=== PATIENT | female | born 1980 | race Caucasian/White ===

== ENCOUNTER → 2018-07-20 | Outpatient (CLI) | payer OTHER | END | disposition home or self-care (01) | LOC: RAD 15:20 | DX: M77.31 Calcaneal spur, right foot (principal) ==

== ENCOUNTER 2018-09-13 05:22 | Emergency (ER) | payer OTHER ==
[~2018-09-13] VITALS: Ht 165.1 cm; Wt 86.5 kg
[2018-09-13 05:23] VITALS: BP 142/89
--- NOTE | 2018-09-13 05:37 | NUR ---
PT PRESENTED WITH C/O BACK PAIN THIS MORNING GETTING OUT OF BED. MONITORS APPLIED, SIDERAILS UP X2, CALL LIGHT WITHIN REACH
[2018-09-13] MEDS ORDERED: KETOROLAC 30 MG/1 ML ONE (05:39)
--- NOTE | 2018-09-13 05:43 | NUR ---
PT MEDICATED PER MAR
[2018-09-13] MEDS ORDERED: DEXAMETHASONE 4 MG/ML, 1ML ONE (05:58)
[2018-09-13] MEDS ORDERED: KETOROLAC 30 MG/1 ML IM ONE (06:00)
== END 2018-09-13 06:33 ==
LOC: ED 06:20
DX: S39.012A Strain of muscle, fascia and tendon of lower back, initial encounter (principal); X58.XXXA Exposure to other specified factors, initial encounter; Y93.89 Activity, other specified; Y92.89 Other specified places as the place of occurrence of the external cause; Y99.8 Other external cause status
CPT/HCPCS: 96372; 99283; J1885